=== PATIENT | female | born 2000 | race Caucasian/White ===

== ENCOUNTER 2021-08-18 21:50 | Emergency (ER) | payer BC ==
[~2021-08-18] VITALS: Ht 162.6 cm; Wt 59.0 kg
[2021-08-18] MEDS ORDERED: EPIN0.1517 IM (22:48)
[2021-08-18] MEDS ORDERED: diphenhydrAMINE HCL 50 MG/ML VIAL ONE (22:49)
[2021-08-18] MEDS ORDERED: DEXAMETHASONE SOD PHOSPHATE 10 MG/ML VIAL ONE (22:49)
[2021-08-18] MEDS ORDERED: ONDANSETRON 4 MG TAB.RAPDIS ONE (22:50)
[2021-08-18] MEDS ORDERED: ONDANSETRON 4 MG TAB.RAPDIS SL ONE (23:00)
[2021-08-18] MEDS ORDERED: diphenhydrAMINE HCL 50 MG/ML VIAL IM ONE (23:00)
[2021-08-18] MEDS ORDERED: DEXAMETHASONE SOD PHOSPHATE 4 MG/ML VIAL IM ONE (23:00)
[2021-08-19 00:40] VITALS: BP 128/77
--- NOTE | 2021-08-19 00:40 | NUR ---
Patient discharged to home in stable condition. Written and verbal after care instructions given. Patient verbalizes understanding of instruction.
== END 2021-08-19 00:40 | disposition home or self-care (01) ==
LOC: ER 21:53
DX: R09.89 Other specified symptoms and signs involving the circulatory and respiratory systems (principal); R07.0 Pain in throat; K13.0 Diseases of lips; Z91.010 Allergy to peanuts
CPT/HCPCS: 96372 ×2; 99284; J1100; J1200; Q0162